=== PATIENT | female | born 1980 | race Hispanic/Latino ===

== ENCOUNTER 2017-12-04 19:51 | Emergency (ER) | payer OTHER ==
[2017-12-04] MEDS: ADACEL/BOOSTRIX VACCINE (DIPHTH/PERTUSS/ACELL/TETANUS)0.5ML SYR (90715) IM (21:00)
== END 2017-12-04 22:02 | disposition home or self-care (01) ==
LOC: M ED 19:51
DX: S01.112A Laceration without foreign body of left eyelid and periocular area, initial encounter (principal); Y04.8XXA Assault by other bodily force, initial encounter; Y92.018 Other place in single-family (private) house as the place of occurrence of the external cause; T76.11XA Adult physical abuse, suspected, initial encounter; Y07.01 Husband, perpetrator of maltreatment and neglect
CPT/HCPCS: 90715

== ENCOUNTER 2018-09-04 16:19 | Emergency (ER) | payer OTHER ==
[~2018-09-04] VITALS: Ht 170.2 cm; Wt 70.5 kg
[2018-09-04] MEDS ORDERED: HYDR-3363 (16:30)
[2018-09-04] MEDS ORDERED: DEXTROAMP-AMPHET (16:30)
[2018-09-04] MEDS ORDERED: KETOROLAC TROMETHAMINE 10 MG TAB PO ONE (16:45)
--- NOTE | 2018-09-04 17:43 | REP ---
Clinical: Nontraumatic hip pain. Technique: Frontal view of the pelvis with neutral and frog lateral views of the right hip. Findings: Osseous structures and joint spaces are intact and normal. Hip joints appear symmetric on frontal pelvic radiograph. No acute fracture dislocation. No evidence for healed injury. No significant degenerative or congenital abnormalities are appreciated. Surrounding soft tissues are unremarkable. Impression: Normal pelvis and right hip series. Electronically Signed by Von Farris MD 09/04/2018 05:35 P
[2018-09-04 17:52] VITALS: BP 120/65
[2018-09-04] MEDS ORDERED: DICL75TA PO (18:00)
== END 2018-09-04 18:10 | disposition home or self-care (01) ==
LOC: M ED 16:19
DX: M25.551 Pain in right hip (principal); F90.9 Attention-deficit hyperactivity disorder, unspecified type

== ENCOUNTER → 2019-02-05 | Outpatient (REF) | payer OTHER ==
[~2019-02-05] MED LIST: DEXTROAMP-AMPHET; DICL75TA PO; HYDR-3363
== END ==
LOC: M LAB REF 19:28
PROVIDERS: ATTEND Physician Assistant
DX: J02.9 Acute pharyngitis, unspecified (principal)

== ENCOUNTER → 2019-03-16 | Outpatient (CLI) | payer OTHER ==
--- NOTE | 2019-03-16 15:03 | REP ---
BILATERAL MAMMOGRAM: Baseline study. Family history of breast cancer at age 30 in maternal aunt. [facility] risk of breast cancer 23.6%. MLO and CC views of both breasts performed. Both breasts demonstrate heterogeneous dense breast parenchyma limiting the sensitivity of the mammogram. There does appear to be a 6 mm nodule laterally in the left breast only seen on the CC view. This is somewhat posterior. No other definite mass or nodule is seen. No clustered microcalcifications are seen. IMPRESSION: BIRADS 0: BI-RADS/ACR category 0 mammogram, Incomplete: Need additional imaging evaluation and/or prior mammograms for comparison. ACR 0 incomplete. There appears to be a 6 mm nodular density posterolaterally in the left breast only seen on the CC view. Recommend spot compression view of the left breast axillary CC projection as well a the left ML view. Other views and ultrasound may also be necessary. Also given the patient's elevated lifetime risk of breast cancer, supplemental screening MRI of the breast is recommended in 6 months. This mammogram was interpreted with the aid of an FDA-approved computer-aided detection system. A. Negative x-ray reports should not delay biopsy if a dominant or clinically suspicious mass is present. B. Four to eight percent of cancers are not identified by x-ray. C. Adenosis and dense breasts may obscure an underlying neoplasm. The patient states that she or he has not had a clinical breast exam in over a year. The patient letter being requested is M0 Electronically Signed by Edouard Thomas MD 03/19/2019 01:05 P
== END ==
LOC: M RAD 12:20
PROVIDERS: ATTEND Student in an Organized Health Care Education/Training Program
DX: Z12.31 Encounter for screening mammogram for malignant neoplasm of breast (principal); R92.8 Other abnormal and inconclusive findings on diagnostic imaging of breast

== ENCOUNTER → 2019-04-11 | Outpatient (CLI) | payer OTHER ==
--- NOTE | 2019-04-11 12:45 | REP ---
DIAGNOSTIC MAMMOGRAM LEFT BREAST WITH LEFT BREAST ULTRASOUND: Multiple spot compression views and tomographic images of the left breast are performed of the left breast and correlated with the baseline mammogram of 03/16/2019. These confirm the presence of a 6 mm low density nodule laterally in the left breast. Again, this could only be seen definitively on CC views. On tomographic images, it appears to have a lucent notch and most likely represents a subcentimeter intramammary lymph node. Real-time sonographic evaluation of the outer left breast is performed. Dense fibroglandular tissue is seen. There is no cystic or solid nodule identified sonographically. IMPRESSION: BIRADS 3: BI-RADS/ACR category 3 mammogram. Probably Benign Findings. 6 mm smoothly marginated nodule outer left breast somewhat posteriorly appears to demonstrate a lucent notch on tomographic images, most consistent with a small intramammary lymph node. It is not seen by ultrasound. This is probably benign. Given the patient's lifetime risk of breast cancer 23.6% and heterogeneously dense breast tissue diffusely bilaterally. MRI of the breasts is recommended to confirm this probably benign finding of an intramammary lymph node, and also to evaluate for other occult pathology. Patient letter requested is M3. Electronically Signed by Edouard Thomas MD 04/12/2019 12:38 A
== END ==
LOC: M RAD 09:16
PROVIDERS: ATTEND Family Medicine
DX: R92.2 Inconclusive mammogram (principal); N63.20 Unspecified lump in the left breast, unspecified quadrant